=== PATIENT | male | born 1985 | race Caucasian/White ===

== ENCOUNTER 2024-03-29 14:10 | Emergency (ER) | payer OTHER, SELFPAY ==
[2024-03-29 14:13] VITALS: BP 115/66; PULSE 69; RESP 19; TEMP 36.9; O2SAT 100
--- NOTE | 2024-03-29 14:40 | ED.GENADULT ---
HPI - General Adult General Chief complaint: Skin/Abscess/Foreign Body Stated complaint: Ingrown Hair/ Sinus/Ears Irritation Source: patient Mode of arrival: ambulatory Limitations: no limitations History of Present Illness HPI narrative: patient presents evaluation of multiple concerns. His primary concern is bilateral ear pain and sore throat. His ear pain started about a week and half ago and he developed a sore throat within the past couple of days. He reports hot flashes, chills and generalized body aches. No nausea, vomiting or diarrhea. He tried taking nyquil and hydrocodone for his symptoms. His child recently had similar symptoms. He is also concerned about an ingrown here to the occipital region of his head. He has associated warmth and redness without any drainage. Related Data Allergies Allergy/AdvReac Type Severity Reaction Status Date / Time No Known Allergies Allergy Verified 03/29/24 14:12 Review of Systems Review of Systems: CONSTITUTIONAL: reports hot flashes and chills. EYES: Denies visual changes, redness, or discharge. ENT: Reports sore throat and bilateral ear pain. CARDIOVASCULAR: Denies chest pain, palpitations, or edema. RESPIRATORY: Denies cough or dyspnea. GASTROINTESTINAL: Denies abdominal pain, nausea, vomiting, or diarrhea. GENITOURINARY: Denies dysuria or hematuria. SKIN: Reports ingrown hair to occipital region of the scalp. Denies rash or itching. MUSCULOSKELETAL: Reports generalized body aches NEUROLOGIC: Reports headache. Denies numbness, dizziness, or weakness. PSYCHIATRIC: Denies anxiety or depression. [facility] Past Medical History Medical History Testicular torsion Surgical History Surgical History H/O inguinal hernia repair History of orchiectomy Family History Family History Mother Family history non-contributory Social History Social History Smoking packs per day: 1 Smoking cigarettes per day: 20.0 Smoking status: Current every day smoker Tobacco type: cigarettes Alcohol intake: current Alcohol use details: rare Substance use: never Gender identity (if verbalized by the patient): Male Spiritual care concerns: No Exam Narrative: GENERAL: Well-appearing, well-nourished, and in no acute distress. HEAD: Normocephalic, atraumatic. EYES: PERRLA and EOMI. ENT: Nares clear, no rhinorrhea or epistaxis. Mucous membranes moist. Bilateral tonsillar enlargement with erythema. No exudate. Uvula is midline. Bilateral TMs pearly jung nonbulging NECK: Supple. No adenopathy or masses. No carotid bruits or JVD CHEST: Clear to auscultation. No respiratory distress. No wheezes rales or rhonchi HEART: Regular rate and rhythm. No murmur heard. Normal peripheral pulses. ABDOMEN: Soft, nontender, nondistended, normal active bowel sounds. EXTREMITIES: Normal range of motion. No edema. SKIN: Approximately 1.5 cm area of erythema with induration and overlying crusted drainage to occipital region of the scalp. Warm, dry, no rash. NEURO: No focal deficits. Alert and oriented x3. PSYCH: Normal mood and affect. Course Course Emergency Course: This is a 38-year-old male who presented for evaluation of sick symptoms. Rapid strep positive. Will start augmentin. Should help with folliculitis. There does not appear to be a drainable fluid collection on exam. Will cover for MRSA with bactroban. Follow up with primary care provider. Advised on wound care. Go to the ER for worsening symptoms. Pt in agreement with plan of care. Level of Care: Express Care Visit Vital Signs Vital signs: Vital Signs Temperature 36.9 C 03/29/24 14:13 Pulse Rate 69 03/29/24 14:13 Respiratory Rate 19 03/29/24 14:13 Blo
[2024-03-30 14:29] LABS: EDSTREPNEGPOS1 Positive (Negative)
== END 2024-03-29 15:00 | disposition home or self-care (01) ==
PROVIDERS: Emergency Provider Nurse Practitioner
DX: J02.0 Streptococcal pharyngitis (principal); L73.9 Follicular disorder, unspecified; F17.210 Nicotine dependence, cigarettes, uncomplicated
CPT/HCPCS: 87880; 99203; G0463